=== PATIENT | male | born 1965 | race Caucasian/White ===

== ENCOUNTER 2017-11-16 09:10 | Emergency (ER) | payer BC ==
[~2017-11-16] VITALS: Ht 172.7 cm; Wt 72.6 kg
[2017-11-16 09:21] VITALS: BP 116/74
[2017-11-16] MEDS ORDERED: AMOXICILLIN500 MG ORAL (09:31)
--- NOTE | 2017-11-16 09:34 | Emergency Room Report ---
History of Present Illness General Chief Complaint: Sore Throat Source: Patient Present Illness HPI Patient is a 52-year-old male who presented after increased throat pain and fever. Patient reports having a fever up to 102. He denies any earache. He denies any neck stiffness. Patient reports having increased pain to both sides of his neck and has noticed some increased swelling of lymph nodes. He denies any medical history. The patient denies any allergies. He denies any severe headache. He denies any abdominal pain. Allergies: Coded Allergies: No Known Allergies (Unverified , 11/16/17) Patient History Reviewed Nursing Documentation: PMH: Agreed; PSxH: Agreed Nursing Documentation-PMH Past Medical History: No Stated History Review of Systems All Other Systems: negative except mentioned in HPI Physical Exam Vital Signs Date Time Temp Pulse Resp B/P (MAP) Pulse Ox O2 Delivery O2 Flow Rate FiO2 11/16/17 09:15 98.6 72 18 116/74 96 Room Air 98.6 General Appearance: well appearing, no apparent distress, alert, GCS 15, non- toxic Head: normocephalic, atraumatic ENT: hearing grossly normal, normal voice, tonsillar swelling, tonsillar exudate Neck: full range of motion, supple, other - lymphadenopathy Respiratory: no respiratory distress, speaking full sentences Gastrointestinal: normal inspection, non tender, soft Musculoskeletal: no calf tenderness Neurologic: normal inspection, alert, oriented x3, responsive, normal gait Psychiatric: mood/affect normal Skin: no rash, other - multiple small nevi Medical Decision Making Diagnostic Impression: Primary Impression: Acute tonsillitis ER Course Patient presented for sore throat. Differential diagnosis included but was not limited to meningitis, exudative tonsillitis, retropharyngeal abscess, epiglottitis, strep pharyngitis. Patient has a benign exam and does not appear to require any further imaging or laboratory testing at this time. The patient appears to have tonsillitis which appears to be bacterial. Patient will be treated with oral antibiotics. The patient was advised saltwater gargling. The patient is advised to follow up with primary care doctor in 2 days for recheck.. Patient is advised to return if any worsening condition or if any changes in status that are concerning. This report is dictated with [employer] light ends recovery software which may occasionally lead to discrepancies related to use of this software. Last Vital Signs Date Time Temp Pulse Resp B/P (MAP) Pulse Ox O2 Delivery O2 Flow Rate FiO2 11/16/17 09:21 98.6 18 116/74 96 Room Air 98.6 11/16/17 09:15 72 Status: improved Disposition: HOME, SELF-CARE Condition: Stable Scripts Amoxicillin* (AMOXIL*) 500 Mg Capsule 500 MG ORAL THREE TIMES A DAY, #21 CAP Prov: Manuel Arrieta MD 11/16/17 Patient Instructions: Tonsillitis Manuel Arrieta MD Nov 16, 2017 09:34
[2017-11-16 09:37] VITALS: BP 116/74
== END 2017-11-16 09:35 | disposition home or self-care (01) ==
LOC: EMR 09:30
DX: J03.90 Acute tonsillitis, unspecified (principal)
CPT/HCPCS: 99283